=== PATIENT | female | born 1965 | race Caucasian/White ===

== ENCOUNTER 2016-10-20 21:05 | Emergency (ER) | payer OTHER ==
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
[2016-10-20] MEDS ORDERED: NAPROSYN PO ONE (22:24)
[2016-10-20 22:35] VITALS: BP 148/59
--- NOTE | 2016-10-21 08:06 | Diag Imaging Result Document ---
PROCEDURE NAME: CHEST-2 VIEWS - 10/20/2016 FRONTAL AND LATERAL CHEST, TWO VIEWS: FINDINGS: The lungs are well expanded. There are no contusions or pneumothoraces. The mediastinum is not widened. No pleural effusions. No free air beneath the diaphragm. No displaced fracture. IMPRESSION: No injury.
--- NOTE | 2016-10-21 08:26 | Diag Imaging Result Document ---
PROCEDURE NAME: THORACIC SPINE - 10/20/2016 THORACIC SPINE, THREE VIEWS: FINDINGS: The pedicles are intact. There is curvature of the mid thoracic spine with convexity to the right. There is anterior osteophyte formation. No evidence of fracture or subluxation is present. IMPRESSION: Spondylosis and mild scoliosis.
== END 2016-10-20 22:39 | disposition home or self-care (01) ==
LOC: ED 21:05
DX: S20.219A Contusion of unspecified front wall of thorax, initial encounter (principal); S29.012A Strain of muscle and tendon of back wall of thorax, initial encounter; R07.89 Other chest pain; M79.602 Pain in left arm; M79.601 Pain in right arm; M79.1 Myalgia; V47.6XXA Car passenger injured in collision with fixed or stationary object in traffic accident, initial encounter
CPT/HCPCS: 71020; 72072; 99283